=== PATIENT | male | born 1980 | race Caucasian/White ===

== ENCOUNTER 2025-03-22 18:32 | Emergency (ER) | payer MEDICAID, SELFPAY ==
[2025-03-22] VITALS (12 sets, daily range): BP systolic 124; BP diastolic 61; PULSE 70–83; TEMP 36.4; O2SAT 96–99; BMI 27.6
--- NOTE | 2025-03-22 18:41 | PC.NURSE ---
area of complaint is across the bottom of chest, area has no redness, swelling or bruising. ice to site
--- NOTE | 2025-03-22 18:47 | CT_ITS ---
The [address] [address] Patient Name: MARIELOS CURTIS MRN: [id number] date: 1980 Sex: M Assigned Patient Location: ER Current Patient Location: ER Accession/Order Number: [id number] Exam Date: 03/22/2025 19:23 Report Date: 03/22/2025 19:35 At the request of: MAYO MORRIS Procedure: CT chest w con CT Chest with contrast TECHNIQUE: Axial imaging with 2-D reconstruction. Cc of Omnipaque 300The CT exam was performed using one or more the following dose reduction techniques: Automated exposure control, adjustment of the MA and/or Kv according to patient size, or use of the iterative reconstruction technique. History: Chest pain. Weightlifting injury COMPARISON: None THYROID: Unremarkable TRACHEA AND BRONCHI: Patent ESOPHAGUS: Unremarkable. HEART: Within normal limits PERICARDIAL EFFUSION: None CORONARY ARTERY CALCIFICATION: None MEDIASTINUM: No adenopathy. No pneumoperitoneum. No mediastinal hematoma. PULMONARY CHARITY: No hilar mass or adenopathy is seen. THORACIC AORTA Unremarkable LUNG NODULE None LUNGS: Lungs are clear PLEURAL EFFUSION: None PNEUMOTHORAX: No pneumothorax seen. CHEST WALL: No abnormality AXILLA:Unremarkable BONY STRUCTURES Intact UPPER ABDOMEN: Images of the upper abdomen are noncontributory. CT/CT chest w con IMPRESSION: No acute chest findings. No acute displaced fracture. Impression dictated by: Benja Nieto M.D. 03/22/2025 7:35 PM Dictation Location: [id number] Electronically authenticated by: [id number] Y Date: 03/22/2025 19:35
--- NOTE | 2025-03-22 18:47 | ECG_ITS ---
The [facility] Test Date: 2025-03-22 Pat Name: MARIELOS CURTIS Department: Room: - Gender: Male [employer] In[employer]: : 1980 Requested By: [id number] Order Number: [id number] Reading MD: ARABELLA LANGE M.D. Measurements Intervals Erin Rate: 74 P: 61 NE: 146 QRS: 61 QRSD: 90 T: 44 QT: 378 QTc: 405 Interpretive Statements 1100 Sinus rhythm 9110 normal ECG No previous ECG available for comparison Electronically Signed On 03-23-2025 19:25:21 EDT by ARABELLA LANGE M.D.
--- NOTE | 2025-03-22 18:58 | ED_ITS ---
HPI HPI - General Adult General Chief complaint: Chest Pain Stated complaint: DROPPED WEIGHT ON HIS CHEST; CHEST PAIN Time Seen by Provider: 03/22/25 18:36 Source: patient Mode of arrival: walk-in Limitations: no limitations History of Present Illness HPI narrative: Patient is a 44-year-old male that presents to the emergency department with complaints of chest pain and shortness of breath after he dropped 140 pound weight bar on his chest while doing a bench press about an hour ago. He denies any past medical history other than drug abuse, mostly methamphetamines. He states he was using a [employer] machine and when he went to go rack the bar he missed the clip and it fell onto his chest. He had to have people help get the bar off his chest. He states he was very short of breath for about 5 minutes. He did present here via private vehicle. He did not take any medications prior to arrival. On arrival he is in no respiratory distress. There is no obvious trauma to the anterior/posterior chest. He states he does have chronic back problems but most of his pain on arrival is in the posterior chest wall around the thoracic area. He does not take any antiplatelets or anticoagulant medications. Related Data Previous Rx's ?Medication ?Instructions ?Recorded ibuprofen 800 mg tablet 800 mg PO Q8H PRN pain #20 t abs 03/22/25 Allergies Allergy/AdvReac Type Severity Reaction Status Date / Time No Known Drug Allergies Allergy Verified 03/22/25 18:39 Review of Systems ROS Status of ROS 10 or more systems reviewed and unremark able except as noted in history and below PFSH PFSH Social History Little interest or pleasure in doing things: not at all Feeling down, depressed, or hopeless: not at all Exam Narrative Exam Narrative: General: No distress, age-appropriate Skin: Warm, dry, no pallor. No rash. Head: Normocephalic, atraumatic. Neck: Supple, non-tender. Eye: Pupils are equal, round and EOMI. No scleral icterus. Ears, Nose, Mouth, and Throat: No nasal mucosal hypertrophy. Oral mucosa is moist, no posterior oropharynx erythema, uvula is mid-line Cardiovascular: Regular Rate and Rhythm without murmur, gallop or rub. Respiratory: No accessory muscle use or respiratory distress. Lungs are clear to auscultation, no wheezing, rales or rhonchi Chest Wall: Mild tenderness anterior/inferior chest wall, no ecchymosis, no crepitance Back: No midline thoracic or lumbar vertebral tenderness. Musculoskeletal: Full ROM of all extremities, no calf or popliteal tenderness GI: Abdomen is soft, non-distended, non tender to palpation. No masses appreciated. No rebound, guarding, or rigidity noted. Neurological: A&O x4. No cranial nerve dysfunction observed. No truncal ataxia. Moves all extremities. Sensation intact. Psychiatric: Cooperative and interactive. Normal mood and affect. Constitutional Vital Signs, click to edit/add: Last Vital Signs Temp 97.5 F L 03/22/25 18:36 Pulse 72 03/22/25 20:40 Resp 16 03/22/25 20:40 BP 124/61 03/22/25 18:36 Pulse Ox 99 03/22/25 20:30 O2 Del Method Room Air 03/22/25 18:36 Course Reevaluation(s) Reevaluation #1: Patient updated that labs looked okay and CT chest was negative for pneumothorax, hemo-/pneumo mediastinum, pulmonary contusion, or rib fractures. 30 mg of IV Toradol ordered. Patient states that the ice is helping with his pain as well. We discussed discharge with NSAIDs and he could also use lidocaine patches for pain control and he is agreeable to this. Time: 20:08 Vital Signs Vital signs: Vital Signs Temperature 97.5 F L 03/22/25 18:36 Pulse Rate 83 03/22/25 18:36 Respiratory Rate 20 03/22/25 18:36 Blood Pressure 124/61 03/22/25 18:36 Pulse Oximetry 98 03/22/25 18:36 Oxygen Delivery Method Room Air 03/22/25 18:36 Temperature 97.5 F L 03/22/25 18:36 Pulse Rate 72 03/22/25 20:40 Respiratory Rate 16 03/22/25 20:40 Blood Pressure 124/61 03/22/25 18:36 Pulse Oximetry 99 03/22/25 20:30 Oxygen Delivery Method Room Air 03/22/25 18:36 Medical Decision Making MDM Narrative Medical decision making narrative: 44-year-old male, [facility] presented with complaints of chest pain and shortness of breath after dropping 140 pound weight bar on his chest while using a [employer] machine for benchpress. On arrival patient is in no respiratory distress, vitals are stable, he is 98% O2 saturation on room air. On inspection there is no obvious trauma, no ecchymosis, no crepitance with palpation. EKG NSR, CT chest with contrast and labs ordered. Labs as below and CT chest negative for pulmonary contusion, blunt cardiac trauma, pneumothorax, hemothorax, cardiac tamponade, and rib fractures. Ice and Toradol helped with pain control. We discussed that he will likely still have some pain with coughing/sneezing/laughing and he can use NSAIDs and lidocaine patches. I prescribed him a course of ibuprofen 800 mg. We did discuss that should he develop any new or worsening symptoms that he should return to the emergency department. Patient was discharged in [facility]. Differential Diagnosis Differential Diagnosis: Pneumothorax, pulmonary contusion, rib fracture, sternal fracture Lab Data Lab results reviewed: Yes I reviewed the patient's lab results Lab results narrative: CBC and BMP ordered. Largely within normal limits. Labs: Lab Results 03/22/25 Range/Units 19:00 WBC 7.8 (4.0-11.0) 10^3/uL RBC 4.90 (4.70-6.10) 10^6/uL Hgb 14.8 (14.0-18.0) g/dL Hct 41.3 L (42.0-54.0) % MCV 84.3 (80.0-94.0) fL MCH 30.2 (25.9-34.0) pg MCHC 35.8 H (29.9-35.2) g/dL RDW 11.8 (11.0-15.0) % Plt Count 226 (150-450) 10^3/uL MPV 11.4 (9.5-13.5) fL Neut % (Auto) 58.5 (43.0-75.0) % Lymph % (Auto) 27.1 (20.5-60.0) % Yancey % (Auto) 8.5 (1.7-12.0) % Eos % (Auto) 4.8 (0.9-7.0) % Baso % (Auto) 0.6 (0.2-2.0) % Neut # (Auto) 4.6 (1.4-6.5) 10^3/uL Lymph # (Auto) 2.1 (1.2-3.8) 10^3/uL Yancey # (Auto) 0.7 (0.3-0.8) 10^3/uL Eos # (Auto) 0.4 (0.0-0.7) 10^3/uL Baso # (Auto) 0.1 (0.0-0.1) 10^3/uL Abs Immat Gran (auto) 0.04 H (0.00-0.03) 10^3/uL Imm/Tot Granulo (auto) 0.5 (0.0-0.5) % Sodium 137 (136-145) mmol/L Potassium 4.1 (3.5-5.1) mmol/L Chloride 102 (98-107) mmol/L Carbon Dioxide 27.9 (21.0-32.0) mmol/L Anion Gap 11.2 BUN 22.0 H (7.0-18.0) mg/dL Creatinine 1.08 (0.70-1.30) mg/dL Est GFR ( Amer) >60 (>=60 mL/min/1.73m^2) Est GFR (Non-Af Amer) >60 (>=60 mL/min/1.73m^2) BUN/Creatinine Ratio 20.4 Glucose 91 (74-106) mg/dL Calcium 9.3 (8.5-10.1) mg/dL Imaging Data CT scan - chest: Attestation: I have reviewed the pertinent imaging results. Radiologist's impression: ITS Impressions Chest CT 03/22/25 18:47 IMPRESSION: No acute chest findings. No acute displaced fracture. Impression dictated by: Benja Nieto M.D. 03/22/2025 7:35 PM Dictation Location: [place] [address] Electronically authenticated by: [id number] Y Date: 03/22/2025 19:35 ECG Data Attestation: ?I have reviewed the pertinent ECG results. Discharge Plan Discharge Chief Complaint: Chest Pain Clinical Impression: Chest wall contusion Patient Disposition: Home, Self-Care Time of Disposition Decision: 20:13 Condition: Good Mode of Transportation: Private Vehicle Prescriptions / Home Meds: New ibuprofen 800 mg tablet 800 mg PO Q8H PRN (Reason: pain) Qty: 20 0RF Print Language: Macedonian Instructions: Chest Contusion (ED) Additional Instructions: For chest contusion rest, ice, take NSAIDs (ibuprofen) as needed for pain or lidocaine patches that you can get [id number]. If your symptoms worsen or you experience any new symptoms return to the emergency department. Referrals: Physician,Non-Staff, MD [Primary Care Provider] - 1 week Discharge Date/Time: 03/22/25 20:53
[2025-03-22 19:08] LABS: Hematocrit 41.3 % (42.0-54.0); Hemoglobin 14.8 g/dL (14.0-18.0); Immature Granulocytes Abs Auto 0.04 10^3/uL (0.00-0.03); Immature Granulocytes Pct Auto 0.5 % (0.0-0.5); Lymphocytes Absolute Auto 2.1 10^3/uL (1.2-3.8); Mean Corpuscular HGB Conc 35.8 g/dL (29.9-35.2); Mean Corpuscular Hemoglobin 30.2 pg (25.9-34.0); Mean Corpuscular Volume 84.3 fL (80.0-94.0); Platelet Count 226 10^3/uL (150-450); Red Blood Count 4.90 10^6/uL (4.70-6.10); White Blood Count 7.8 10^3/uL (4.0-11.0)
[2025-03-22 19:16] LABS: Anion Gap 11.2; Blood Urea Nitrogen 22.0 mg/dL (7.0-18.0); Calcium 9.3 mg/dL (8.5-10.1); Carbon Dioxide 27.9 mmol/L (21.0-32.0); Chloride 102 mmol/L (98-107); Estimated GFR (African America >60 (>=60 mL/min/1.73m^2); Estimated GFR (Non-African Ame >60 (>=60 mL/min/1.73m^2); Glucose 91 mg/dL (74-106); Potassium 4.1 mmol/L (3.5-5.1); Sodium 137 mmol/L (136-145)
[2025-03-22] MEDS: KETOROLAC TROMETHAMINE 30 MG/ML VIAL IVP (20:44)
== END 2025-03-22 20:53 | disposition home or self-care (01) ==
PROVIDERS: Physician Assistant; Emergency Provider Emergency Medicine
DX: S20.219A Contusion of unspecified front wall of thorax, initial encounter (principal); R07.89 Other chest pain; R06.02 Shortness of breath; W20.8XXA Other cause of strike by thrown, projected or falling object, initial encounter; Y93.B1 Activity, exercise machines primarily for muscle strengthening
CPT/HCPCS: 36415; 71260; 80048; 85025; 93005; 96374; 99285; J1885; Q9967